=== PATIENT | female | born 1990 | race Two or more races ===

== ENCOUNTER → 2016-10-28 | Outpatient (CLI) | payer OTHER ==
[~2016-10-28] MED LIST: FEOSOL325 MG PO; MOTRIN800 MG PO; PERCOCET 5-3251 EACH PO; PRENATAL 1+1)(P1 TAB PO; SURFAK240 MG PO; ZANTAC (NON-FO150 MG PO
[2016-10-28 20:30] LABS: BILIRUBIN URINE NEGATIVE (NEGATIVE); BLOOD URINE NEGATIVE /UL (NEGATIVE); GLUCOSE URINE NEGATIVE (NEGATIVE); KETONE URINE NEGATIVE (NEGATIVE); LEUKOCYTES URINE 100 /UL (NEGATIVE); NITRITE URINE NEGATIVE (NEGATIVE); PROTEIN URINE NEGATIVE (NEGATIVE); SPEC GRAVITY URINE 1.015 (1.003-1.035); UROBILINOGEN URINE NORMAL (NORMAL)
[2016-10-28 20:45] LABS: COLOR URINE YELLOW (YELLOW); TURBIDITY URINE 1+ (CLEAR)
[2016-10-28 20:46] LABS: BACTERIA URINE FEW (NEGATIVE); RBC URINE NEGATIVE #/HPF (NEGATIVE)
== END | disposition disaster alternative care site (69) ==
LOC: LGSMG 15:53
PROVIDERS: Neurological Surgery
DX: R30.0 Dysuria (principal)

== ENCOUNTER 2017-02-10 15:57 | Inpatient (IN) | payer OTHER ==
[~2017-02-10] VITALS: Ht 157.5 cm; Wt 88.7 kg
--- NOTE | ~2017-02-10 | OR ---
PATIENT'S NAME: KIM BENEDICT [facility] AGE: 27 Y [address] ROOM: [place] [address] LOCATION: [facility] ADMIT DATE: 02/10/2017 OR/Procedure Report DISCHARGE DATE: FAMILY PHYSICIAN: PHYSICIAN, NO ATTENDING PHYSICIAN: Emely Jacome SURGEON: Kristyn Quinones MD [employer] ARCHITECT: Emely Jacome M.D. DATE OF PROCEDURE: 02/10/2017 PREOPERATIVE DIAGNOSES: 1. Intrauterine at 40 weeks. 2. Unengaged vertex. POSTOPERATIVE DIAGNOSES: 1. Intrauterine at 40 weeks. 2. Unengaged vertex. PROCEDURE: Primary low transverse section. ANESTHESIA: Epidural. BLOOD LOSS: 500 mL. COMPLICATIONS: Meconium-stained fluid. DESCRIPTION OF PROCEDURE: The patient was taken to the operating room and placed under a dosed up epidural. She is prepped and draped and a Rosenberg catheter was already in place. A Pfannenstiel skin incision was made with a knife and carried down to the level of fascia. The fascia was nicked in midline. The incision was carried out laterally. The fascia sharply and bluntly dissected from the underlying rectus muscles. The peritoneum was opened sharply and incised and stretched. The bladder blade was placed. Bladder reflection was taken down sharply and placed behind the bladder blade. A low transverse uterine incision was made and carried out laterally to the operator electronic warfare's fingers. The bag of water was ruptured, and meconium-stained fluid was noted. The vertex was easily delivered over the uterine incision. Shoulders and body were delivered. There was a loose nuchal cord. Mouth and nares were suctioned. Baby girl's cord was doubly clamped and cut. She is shown to the mother and handed off to the warmer. A three-vessel cord was noted. Arterial and venous blood samples are collected. The placenta delivered manually and intact and remaining membranes were swept from the uterus. The uterus was exteriorized. Tubes and ovaries looked normal. The uterus was somewhat atonic, but clamps down with massage. 0 chromic was used to close the stitch the uterus in a running locking fashion. A second imbricating stitch was performed. A [id number] in the left apex with 0 PATIENT'S NAME: KIM BENEDICT [facility] AGE: 27 Y [address] ROOM: [place] [address] LOCATION: [facility] ADMIT DATE: 02/10/2017 OR/Procedure Report DISCHARGE DATE: FAMILY PHYSICIAN: PHYSICIAN, NO ATTENDING PHYSICIAN: Emely Jacome Vicryl was needed. The uterus was replaced within the peritoneal cavity. The colic gutters were inspected and found to be dry. The peritoneum was closed with 2-0 Vicryl. 0 Vicryl was used to close the fascia and tied separately in the midline. A 4-0 Vicryl used to close the skin. The patient tolerated the procedure well and went to recovery in stable condition. MD SHERRI LEE/vandanal /[id number] d: 02/11/17 0645 t: 02/19/17 1801, OPERATIVE SUMMARY
--- NOTE | ~2017-02-10 | HP ---
PATIENT'S NAME: KIM BENEDICT [facility] AGE: 27 Y [address] ROOM: [facility] [place] [place] [address] LOCATION: [facility] ADMIT DATE: 02/10/2017 History & Physical DISCHARGE DATE: FAMILY PHYSICIAN: PHYSICIAN, NO ATTENDING PHYSICIAN: Emely Jacome DATE OF SERVICE: HISTORY OF PRESENT ILLNESS: This is a 26-year-old, 1, para 0, who presents with an EDC of 02/07/2017. She presented in early labor to the office yesterday and on her NST had a spontaneous deceleration. She was brought to Labor and Delivery. Her induction was scheduled for 02/11, so I went ahead and started Pitocin yesterday, she was 2 cm dilated. Pitocin was started last night around 6 p.m. She was 2 cm and very high, ballotable, known to be vertex by ultrasound. She did well with Pitocin and got 21 milliunits per minute. She had a labor epidural placed. After the labor epidural, she was 4 cm dilated and thought that perhaps there is maybe a funic presentation. I checked her a little bit later and she was 5 to 6 cm and I do not feel the cord, but the head is still very ballotable and checked her 20 minutes later, she was 7 cm and the head was still very ballotable and having some subtle . We turned off the Pitocin and will move ahead to a code yellow section all the while, while watching carefully. She understands the surgical risks to include, but not limited to, bleeding, transfusion, infection, injury to other organs, need for additional surgery. PAST MEDICAL HISTORY: No major medical problems. ALLERGIES: SHE HAS NO KNOWN MEDICAL ALLERGIES. CURRENT MEDICATIONS: vitamins. IMPRESSION: 1. Intrauterine at 40 weeks. 2. Unengaged vertex despite active labor. 3. Possible funic presentation. PLAN: We will proceed with section. She and her understand the risks to include, but not limited to, bleeding, transfusion, infection, injury to other organs, and need for additional surgery. They also understand need for section in most places in the future. Appropriate consents are PATIENT'S NAME: KIM BENEDICT [facility] AGE: 27 Y [address] ROOM: [facility] [place] [place], [place] [address] LOCATION: [facility] ADMIT DATE: 02/10/2017 History & Physical DISCHARGE DATE: FAMILY PHYSICIAN: PHYSICIAN, WINSTON ATTENDING PHYSICIAN: Emely Jacome signed and witnessed. DARRIUS MD SHERRI HENRY/sandhya /[id number] D: [id number] T: [id number] HISTORY & PHYSICAL
--- NOTE | ~2017-02-10 | DS ---
PATIENT'S NAME: KIM BENEDICT [facility] AGE: 27 Y [address] ROOM: [place] [address] LOCATION: [facility] ADMIT DATE: 02/10/2017 Discharge Summary DISCHARGE DATE: 02/13/2017 FAMILY PHYSICIAN: , WINSTON ATTENDING PHYSICIAN: Emely Jacome ADMISSION DIAGNOSIS: Intrauterine at 40 weeks. DISCHARGE DIAGNOSES: 1. Intrauterine at 40 weeks. 2. Unengaged vertex. 3. Anemia. PROCEDURES PERFORMED: Primary low-transverse section. CONSULTATIONS: None. COMPLICATIONS: None. HISTORY AND HOSPITAL COURSE: The patient is a 27-year-old G1, P0, who presented for a scheduled induction of labor at term. The patient progressed through labor, but was found to have an unengaged vertex and was recommended to undergo primary section. Procedure was without complication with total EBL of 500. She delivered a viable infant. On postoperative day #1, the patient was found to have a hemoglobin of 7.6. She was started on iron. On postoperative day #2, the patient was ambulating tolerating p.o. intake, and voiding without difficulty, and was denying any symptoms of dizziness or lightheadedness. She was on ferrous sulfate for iron supplementation and subsequently stable for discharge to home. Incision was clean, dry, and intact at that time. DISCHARGE PRECAUTIONS: The patient was instructed to call with fever greater than 100.4, uncontrolled pain, heavy vaginal bleeding greater than 2 pads per hour and redness or drainage around her incision site. She is to follow up with Dr. Quinones in 2 weeks. She was also instructed not to lift anything greater than 15 pounds for the next 4 weeks, and to be on pelvic rest for 6 weeks. DISCHARGE MEDICATIONS: Please see med list. NADYA ZIMMER MD PATIENT'S NAME: KIM BENEDICT [facility] AGE: 27 Y [address] ROOM: [place] [address] LOCATION: [facility] ADMIT DATE: 02/10/2017 Discharge Summary DISCHARGE DATE: 02/13/2017 FAMILY PHYSICIAN: WINSTON RIOS ATTENDING PHYSICIAN: Emely Jacome/vandanal /[id number] d: 02/14/17 0145 t: 02/17/17 2154, DISCHARGE SUMMARY
[2017-02-10 16:49] LABS: BASOPHIL % 0.2 %; EOSINOPHIL % 0.3 %; HEMATOCRIT 34.9 % (33.0-46.0); HEMOGLOBIN 11.9 g/dL (11.0-15.0); IMMATURE GRANULOCYTE # 0.3 K/uL (0.0-0.3); IMMATURE GRANULOCYTE % 2.9 %; LYMPHOCYTE # 1.6 K/uL (0.8-4.0); LYMPHOCYTE % 14.7 %; MCHC 34.1 gm/dL (32.0-36.5); MCV 85.1 fl (83.0-98.0); MONOCYTE # 0.7 K/uL (0.0-1.0); MONOCYTE % 6.2 %; MPV 11.7 fl (9.4-12.4); NEUTROPHIL # (ANC) 8.4 K/uL (1.8-7.8); NEUTROPHIL % 75.7 %; NRBC % 0 /100WBC (0-0.00); PLATELET COUNT 129 K/uL (150-450); RDW-CV 14.7 % (11.9-14.6); WBC 11.1 K/uL (4.0-11.0)
[2017-02-10] MEDS ORDERED: ZANTAC (NON-FO150 MG PO (17:06)
[2017-02-10] MEDS ORDERED: PRENATAL 1+1)(P1 TAB PO (17:06)
[2017-02-11 06:10] LABS: BICARBONATE 24.6 mmol/L (18.0-23.0); PCO2 48 mmHg (35-45); PO2 13 mmHg (80-90)
[2017-02-12 06:03] LABS: BASOPHIL % 0.1 %; EOSINOPHIL # 0.1 K/uL (0.0-0.5); EOSINOPHIL % 0.7 %; IMMATURE GRANULOCYTE # 0.1 K/uL (0.0-0.3); IMMATURE GRANULOCYTE % 1.2 %; LYMPHOCYTE # 1.4 K/uL (0.8-4.0); LYMPHOCYTE % 15.2 %; MCV 86.4 fl (83.0-98.0); MONOCYTE # 0.9 K/uL (0.0-1.0); MONOCYTE % 10.1 %; MPV 11.4 fl (9.4-12.4); NEUTROPHIL # (ANC) 6.4 K/uL (1.8-7.8); NEUTROPHIL % 72.7 %; NRBC % 0 /100WBC (0-0.00); WBC 8.9 K/uL (4.0-11.0)
[2017-02-12 06:05] LABS: HEMATOCRIT 22.8 % (33.0-46.0); HEMOGLOBIN 7.6 g/dL (11.0-15.0); MCH 28.8 pg (27.0-34.0); MCHC 33.3 gm/dL (32.0-36.5); PLATELET COUNT 103 K/uL (150-450); RBC 2.64 M/uL (3.50-5.00)
--- NOTE | 2017-02-12 17:48 | NUR ---
Last VS: T:97.6 P:102 R: 20 BP: 116/56 Pain ratin Last pain med: Percocet(1) Medicated at: 1513 Effective: Yes R Lung sounds: , L Lung sounds: Fundus:, , Lochia: SMALL Breasts: SOFT Nipples: TENDER/INTACT Incision: , Incision appearance: Incision closure: SUTURE/STERISTRIPS Bowel sounds: Passing flatus: Y Voiding well: Y Significant event: *.UP AD [place], WALKED MANY TIMES IN [place] W/ MOM THIS A.M. & W/ THIS AFTERNOON. NEW BED MADE, DRESSING REMOVED BY PT & HER . INSTRUCTED TO REMOV STERISTRIPS IN SHOWER IN 7 DAYS. MAY CALL FOR HELP TO GET INTO SHOWER.
--- NOTE | 2017-02-13 05:32 | NUR ---
Last VS: T:98.8 P:117 R: 16 BP: 112/61 Pain ratin Last pain med: Motrin Medicated at: 0316 Effective: Yes R Lung sounds: , L Lung sounds: Fundus: midline, firm, 1 fb below Lochia: rubra, small amounts Breasts: Nipples: Incision: steri-strips intact Incision appearance: Incision closure: Bowel sounds: present Passing flatus: yes Voiding well: yes Significant event: Patient is up independently. HRs in the 100s-1 teens. Pleasant and cooperative with cares.
[2017-02-13] MEDS ORDERED: FEOSOL325 MG PO (11:14)
[2017-02-13] MEDS ORDERED: SURFAK240 MG PO (11:14)
[2017-02-13] MEDS ORDERED: MOTRIN800 MG PO (11:16)
[2017-02-13] MEDS ORDERED: PERCOCET 5-3251 EACH PO (11:17)
== END 2017-02-13 16:00 | disposition disaster alternative care site (69) | DRG 765 ==
LOC: GOBM 15:57 → GOBS 15:57 → GOBM 15:58 → GOBS 15:58
PROVIDERS: ADMIT Obstetrics & Gynecology
PROC: 10D00Z1 Extraction of Products of Conception, Low, Open Approach (ICD-10-PCS; principal; 2017-02-11)
DX: O48.0 Post-term pregnancy (principal); D62 Acute posthemorrhagic anemia; O64.8XX0 Obstructed labor due to other malposition and malpresentation, not applicable or unspecified; O90.81 Anemia of the puerperium; O77.0 Labor and delivery complicated by meconium in amniotic fluid; O69.81X0 Labor and delivery complicated by cord around neck, without compression, not applicable or unspecified; O99.824 Streptococcus B carrier state complicating childbirth; Z3A.40 40 weeks gestation of pregnancy; Z37.0 Single live birth
CPT/HCPCS: J0690; J1885; J2001; J2270; J2540; J2590; J3010; J7120

== ENCOUNTER → 2017-03-22 | Outpatient (CLI) | payer OTHER | END | disposition disaster alternative care site (69) | LOC: LGSMG 15:37 | DX: R30.0 Dysuria (principal) ==